=== PATIENT | male | born 1940 | race Caucasian/White ===

== ENCOUNTER 2019-09-27 15:20 | Emergency (ER) | payer OTHER ==
[~2019-09-27] VITALS: Ht 167.6 cm; Wt 61.2 kg
[2019-09-27] MEDS ORDERED: PLAVIX75 MG (16:25)
[2019-09-27] MEDS ORDERED: METFORMIN (16:26)
== END 2019-09-27 19:34 | disposition home or self-care (01) ==
LOC: ER 15:20
DX: N47.1 Phimosis (principal)